=== PATIENT | female | born 1980 ===

== ENCOUNTER 2018-09-11 05:30 | Inpatient (IN) | payer OTHER ==
[~2018-09-11] VITALS: Ht 172.7 cm; Wt 72.7 kg
[2018-09-11] MEDS ORDERED: LACTATED RINGERS 1,000 ML IV SCH (05:33)
[2018-09-11 05:36] VITALS: BP 101/58
[2018-09-11] MEDS ORDERED: LACTATED RINGERS 1,000 ML IVBOLUS ONE (06:00)
[2018-09-11] MEDS ORDERED: METOCLOPRAMIDE 5 MG/ML, 2ML IV ONE (06:00)
[2018-09-11] MEDS ORDERED: SODIUM CITRATE/CITRIC ACID 15 ML UDC PO ONE (06:00)
[2018-09-11] MEDS ORDERED: PLEASE ENTER ALLERGIES MC SCH (06:00)
[2018-09-11] MEDS ORDERED: ONDANSETRON 2MG/ML, 2ML IVPush ONE (06:00)
[2018-09-11 06:08] LABS: BASOPHILS # (AUTO) 0.05 x10^3/uL (0-0.1); BASOPHILS % (AUTO) 0 % (0-1); EOSINOPHILS # (AUTO) 0.06 x10^3/uL (0-0.4); EOSINOPHILS % (AUTO) 1 % (1-7); LYMPHOCYTES # (AUTO) 2.07 x10^3/uL (1-3.4); LYMPHOCYTES % (AUTO) 20 % (22-44); MD NO; MEAN CORPUSCULAR HEMOGLOBIN 33.2 pg (27.0-34.8); MEAN CORPUSCULAR HGB CONC 33.8 g/dL (32.4-35.8); MEAN CORPUSCULAR VOLUME 98.4 fL (80-100); MEAN PLATELET VOLUME 8.1 fL (7.4-10.4); MONOCYTES % (AUTO) 8 % (2-9); NEUTROPHILS # (AUTO) 7.67 x10^3/uL (1.8-6.8); NEUTROPHILS % (AUTO) 72 % (42-75); PLATELET COUNT 198 x10^3/uL (130-400); RED BLOOD COUNT 3.72 x10^6/uL (3.82-5.3); RED CELL DISTRIBUTION WIDTH 13.6 % (9.6-15.2)
[2018-09-11] MEDS ORDERED: SODIUM CITRATE/CITRIC ACID 15 ML UDC ONE (06:19)
[2018-09-11] MEDS ORDERED: NEWBORN KIT ONE (06:19)
[2018-09-11] MEDS ORDERED: METOCLOPRAMIDE 5 MG/ML, 2ML ONE (06:19)
[2018-09-11] MEDS ORDERED: OXYTOCIN 30U/ 0.9% NaCL 500ML 500 ML ONE (07:14)
[2018-09-11] MEDS ORDERED: morphine SULFATE/PF 1 MG/ML, 10ML ONE (08:30)
[2018-09-11] MEDS ORDERED: CEFAZOLIN 1,000 MG ONE (08:43)
[2018-09-11] MEDS ORDERED: OXYTOCIN 10 UNITS/ML, 1ML ONE (08:43)
[2018-09-11] MEDS ORDERED: KETOROLAC 30 MG/1 ML ONE (08:43)
[2018-09-11] MEDS ORDERED: ONDANSETRON 2MG/ML, 2ML ONE ×2 (08:43→11:09)
[2018-09-11] MEDS ORDERED: DEXAMETHASONE 4 MG/ML, 1ML ONE (08:43)
[2018-09-11] MEDS ORDERED: WATER-INJECTION,STERILE 10 ML IV ONE (08:43)
[2018-09-11] MEDS ORDERED: MIDAZOLAM 1 MG/ML, 2ML ONE (08:52)
[2018-09-11] MEDS: LACTATED RINGERS 1,000 ML IV SCH ×4 (09:26→19:26)
[2018-09-11] MEDS ORDERED: CARBOPROST TROMETHAMINE 250 MCG/ML, 1ML IM PRN (09:30)
[2018-09-11] MEDS ORDERED: MORPHINE SULFATE 4 MG/ML, 1ML IVPush PRN (09:30)
[2018-09-11] MEDS ORDERED: morphine SULFATE 10 MG/ML, 1ML IVPush PRN ×2 (09:30→11:30)
[2018-09-11] MEDS ORDERED: MISOPROSTOL 200 MCG TABLET PR PRN (09:30)
[2018-09-11] MEDS: KETOROLAC 30 MG/1 ML IV SCH ×3 (09:30→21:15)
[2018-09-11] MEDS ORDERED: ONDANSETRON 2MG/ML, 2ML IV PRN (09:30)
[2018-09-11] MEDS ORDERED: OXYcodone IR 5MG TABLET PO PRN ×2 (09:30)
[2018-09-11] MEDS ORDERED: METHYLERGONOVINE 0.2 MG/ML IM PRN (09:30)
[2018-09-11] MEDS ORDERED: ACETAMINOPHEN 650 MG/20.3 ML UDC PO PRN ×2 (10:30→12:00)
[2018-09-11] MEDS ORDERED: ONDANSETRON 2MG/ML, 2ML IVPush PRN (11:00)
[2018-09-11] MEDS ORDERED: EPHEDRINE 50 MG/ML, 1ML IVPush PRN (11:00)
[2018-09-11] MEDS ORDERED: NALOXONE 0.4 MG/ML, 1ML IV PRN (11:00)
[2018-09-11] MEDS ORDERED: DIPHENHYDRAMINE 50 MG/ML, 1ML IV PRN (11:00)
[2018-09-11] MEDS ORDERED: NO SEDATIVES, TRANQUILIZERS OR ANTIEMETICS XX SCH (11:00)
[2018-09-11] MEDS: OXYTOCIN 30U/ 0.9% NaCL 500ML 500 ML IV SCH ×2 (11:17→19:38)
[2018-09-11 11:30] VITALS: BP 100/63
[2018-09-11 15:16] LABS: MEAN CORPUSCULAR HGB CONC 33.3 g/dL (32.4-35.8); MEAN CORPUSCULAR VOLUME 98.9 fL (80-100); MEAN PLATELET VOLUME 8.3 fL (7.4-10.4); PLATELET COUNT 182 x10^3/uL (130-400); RED CELL DISTRIBUTION WIDTH 13.3 % (9.6-15.2)
[2018-09-11 15:33] VITALS: BP 100/61
[2018-09-11 15:47] LABS: BASOPHILS # (AUTO) 0.01 x10^3/uL (0-0.1); BASOPHILS % (AUTO) 0 % (0-1); EOSINOPHILS % (AUTO) 0 % (1-7); LYMPHOCYTES # (AUTO) 1.15 x10^3/uL (1-3.4); LYMPHOCYTES % (AUTO) 7 % (22-44); MD SCAN; MONOCYTES # (AUTO) 0.68 x10^3/uL (0.2-0.8); MONOCYTES % (AUTO) 4 % (2-9); NEUTROPHILS # (AUTO) 14.55 x10^3/uL (1.8-6.8); NEUTROPHILS % (AUTO) 89 % (42-75)
[2018-09-11 21:00] VITALS: BP 101/61
[2018-09-12] VITALS: BP 95/59
[2018-09-12] MEDS: LACTATED RINGERS 1,000 ML IV SCH ×5 (01:26→17:26)
[2018-09-12] MEDS: KETOROLAC 30 MG/1 ML IV SCH ×4 (04:30→21:35)
[2018-09-12 04:40] VITALS: BP 104/67
[2018-09-12] MEDS: OXYTOCIN 30U/ 0.9% NaCL 500ML 500 ML IV SCH ×2 (04:44→15:53)
[2018-09-12] MEDS: PRENATAL VIT/IRON/FA 1 EACH TABLET PO SCH (07:38)
[2018-09-12] MEDS: DOCUSATE 100 MG CAPSULE PO PRN ×2 (07:38→21:36)
[2018-09-12 07:42] VITALS: BP 99/63
[2018-09-12] MEDS ORDERED: SIMETHICONE 80 MG CHEW TAB PO PRN (13:00)
[2018-09-12] MEDS: ACETAMINOPHEN 325 MG TABLET PO PRN ×3 (13:00→21:36)
[2018-09-12 21:00] VITALS: BP 116/78
[2018-09-13] MEDS: LACTATED RINGERS 1,000 ML IV SCH ×6 (01:26→21:26)
[2018-09-13] MEDS: OXYTOCIN 30U/ 0.9% NaCL 500ML 500 ML IV SCH ×3 (01:26→21:26)
[2018-09-13] MEDS: KETOROLAC 30 MG/1 ML IV SCH (03:55)
[2018-09-13] MEDS: ACETAMINOPHEN 325 MG TABLET PO PRN ×5 (04:05→21:54)
[2018-09-13 07:40] VITALS: BP 110/73
[2018-09-13] MEDS: PRENATAL VIT/IRON/FA 1 EACH TABLET PO SCH (09:56)
[2018-09-13] MEDS: DOCUSATE 100 MG CAPSULE PO PRN (09:56)
[2018-09-13] MEDS: IBUPROFEN 800 MG TABLET PO PRN ×2 (13:50→21:54)
[2018-09-13 20:00] VITALS: BP 104/66
[2018-09-14] MEDS: LACTATED RINGERS 1,000 ML IV SCH ×3 (01:26→07:47)
[2018-09-14] MEDS: ACETAMINOPHEN 325 MG TABLET PO PRN (01:52)
[2018-09-14] MEDS: IBUPROFEN 800 MG TABLET PO PRN (05:53)
[2018-09-14] MEDS: OXYTOCIN 30U/ 0.9% NaCL 500ML 500 ML IV SCH (07:26)
[2018-09-14 08:01] VITALS: BP 104/67
[2018-09-14] MEDS: DOCUSATE 100 MG CAPSULE PO PRN (08:53)
[2018-09-14] MEDS: PRENATAL VIT/IRON/FA 1 EACH TABLET PO SCH (08:53)
[2018-09-14] MEDS ORDERED: IBUP-1223 PO (09:47)
[2018-09-14] MEDS ORDERED: OXYC-302 PO (09:47)
== END 2018-09-14 11:05 | disposition home or self-care (01) | DRG 788 ==
LOC: LDIP 05:30 → 2NW 11:35
PROVIDERS: ADMIT Obstetrics & Gynecology; ATTEND Obstetrics & Gynecology
PROC: 10D00Z1 Extraction of Products of Conception, Low, Open Approach (ICD-10-PCS; principal; 2018-09-11)
DX: O34.211 Maternal care for low transverse scar from previous cesarean delivery (principal); Z37.0 Single live birth; Z3A.39 39 weeks gestation of pregnancy
CPT/HCPCS: 36415; 82803; 85025; 86850; 86900; G0378; J0690; J1100; J1885; J2250; J2274; J2405; J2590; J2765; J7120